=== PATIENT | male | born 1990 | race Caucasian/White ===

== ENCOUNTER → 2019-01-02 | Outpatient (CLI) | payer OTHER, SELFPAY ==
--- NOTE | 2019-01-02 11:15 | RAD_ITS ---
STUDY: X-RAY - LEFT HAND REASON FOR EXAM: Male, 28 years old. Pain of the left thumb following hyperextension. TECHNIQUE: 3 view(s) of the hand. COMPARISON: None. FINDINGS: Normal radiocarpal articulation. Normal distal radioulnar joint. Normal visualized carpal bones. Normal carpal articulations Normal carpometacarpal articulation of the thumb. Normal second through fifth carpometacarpal joints. Normal metacarpi. Normal metacarpophalangeal joint of the thumb. Normal interphalangeal joint of the thumb. Normal proximal and distal phalanges of the thumb. Normal metacarpophalangeal joints of the second through fifth fingers. Normal proximal and distal interphalangeal joints of the second through fifth fingers. Normal phalanges of the second through fifth fingers. Soft tissue swelling. RAD/Hand Min 3 Views IMPRESSION: Soft tissue swelling. Electronically Signed: Josue Michelle, at 12:27 EDT , Service support ,
== END | disposition home or self-care (01) ==
LOC: HPRAD 11:12
PROVIDERS: Family Provider Family Medicine; PCP Family Medicine; Referring Provider Nurse Practitioner; Visit Provider Nurse Practitioner
DX: M79.645 Pain in left finger(s) (principal)
CPT/HCPCS: 73130

== ENCOUNTER → 2020-03-22 08:48 | Outpatient (CLI) | payer OTHER, SELFPAY ==
--- NOTE | 2020-03-22 08:51 | US_ITS ---
STUDY: ABDOMINAL ULTRASOUND - left UPPER QUADRANT REASON FOR VISIT: Male, 29 years old LEFT ABD. AREA OF PALP LUMP TECHNIQUE: Ultrasound evaluation of the left upper quadrant was performed with real-time and static eubanks-scale imaging. TECHNICAL QUALITY: Adequate. COMPARISON: None. FINDINGS: Spleen: Spleen measures 13.2 cm x 6.3 cm x 5.9 cm. It is unremarkable. Left Kidney: Normal size of the left kidney. The left kidney measures 10.9 cm x 5.6 cm x 7.02 cm. Normal renal cortex. The left cortex measures 2.6 cm. There is no demonstrated renal mass or cyst. There is no left hydronephrosis. The palpable lump measures 1.7 sinus by 2.8 cm x 0.5 cm. This is likely echogenic and most likely represents a small lipoma. US/Abdomen Limited IMPRESSION: The palpable lump most likely represents a small lipoma. Electronically Signed: Josue Michelle, at 10:58 EST , Service support ,
== END ==
PROVIDERS: PCP Nurse Practitioner; Referring Provider Nurse Practitioner; Visit Provider Nurse Practitioner
DX: R22.9 Localized swelling, mass and lump, unspecified (principal)
CPT/HCPCS: 76705